=== PATIENT | male | born 1990 | race Caucasian/White ===

== ENCOUNTER 2024-12-26 18:59 | Emergency (ER) | payer OTHER ==
[~2024-12-26] VITALS: Ht 177.8 cm; Wt 98.0 kg
[2024-12-26 19:47] LABS: BASOPHILS 0.6 % (0.2-1.2); EOSINOPHILS 0.6 % (0.8-7.0); LYMPHOCYTES 19.2 % (21.8-53.1); MCH 27.8 PG (25.7-32.2); MCHC 33.3 g/dL (32.3-36.5); MCV 83.5 fL (79.0-92.2); MONOCYTES 11.9 % (5.3-12.2); NEUTROPHILS 67.5 % (34.0-67.9); RBC 5.58 M/uL (4.63-6.08)
[2024-12-26] MEDS ORDERED: RISPERDAL2 MG PO (19:54)
[2024-12-26] MEDS ORDERED: DULOXETINE HCL30 MG PO (19:54)
[2024-12-26 20:05] LABS: ALT (SGPT) 30.0 U/L (14-59); AST (SGOT) 13.0 U/L (15-37); GLOMERULAR FILTRATION RATE,EST 97.0 mL/min (>60); PROTEIN, TOTAL 8.1 g/dL (6.4-8.2); UREA NITROGEN 17.0 mg/dL (7-18)
[2024-12-26] MEDS ORDERED: SODIUM CHLORIDE 0.9% 1,000 ML IV SCH (20:30)
[2024-12-26 22:13] VITALS: BP 133/92
--- NOTE | 2024-12-27 15:40 | EKG ---
[facility] [address] [facility] [place] [address] Signed Poor data quality, interpretation may be adversely affected Sinus tachycardia Otherwise normal ECG No previous ECGs available Confirmed by Paloma Elizabeth MD () on 12/27/2024 3:40:35 PM Electronically Signed By: PALOMA ELIZABETH MD 12/27/24 1540 PATIENT NAME: STEVE MARKS JARETH Electrocardiogram DATE OF : 89 PHYSICIAN: PALOMA ELIZABETH MD REPORT #: [id number] REPORT IS CONFIDENTIAL AND NOT TO BE RELEASED WITHOUT AUTHORIZATION
== END 2024-12-26 22:18 | disposition home or self-care (01) ==
LOC: ED 18:59
PROVIDERS: Emergency Medicine
DX: R53.1 Weakness (principal); R25.1 Tremor, unspecified; R00.0 Tachycardia, unspecified; Z79.899 Other long term (current) drug therapy
CPT/HCPCS: 36415; 70450; 80053; 80307; 83735; 84484; 85025; 93005; 93010; 99285-25; J7030